=== PATIENT | female | born 1995 | race Caucasian/White ===

== ENCOUNTER 2019-01-23 00:07 | Day surgery (SDC) | payer BC ==
[~2019-01-23] VITALS: Ht 162.6 cm; Wt 48.5 kg
[~2019-01-23 00:07] MED LIST: ETON1VAG7 VG; MULT1CAP59 PO
[2019-01-23] MEDS ORDERED: LIDOCAINE MPF 1% 5 ML VIAL ONE (07:50)
[2019-01-23] MEDS ORDERED: PROPOFOL EMUL(*) 10MG/ML 20 ML 40 ML ONE (07:50)
[2019-01-23 08:44] VITALS: BP 111/82
[2019-01-23] MEDS ORDERED: LIDOCAINE/SOD BICARB 8.4% SYR ID ONE (08:55)
[2019-01-23] MEDS ORDERED: NORMOSOL R SOLN(*) 1000 ML BAG 1,000 ML IV PRN (08:55)
[2019-01-23 09:58] VITALS: BP 92/59
--- NOTE | 2019-01-23 10:04 | Short(Outpt) Discharge Summary ---
Discharge Summary Reason for Hosp/Final Diag: (1) Blood per rectum Hospital Course & Plan: pt presented for colonoscopy. she tolerated the procedure well. path pending. she will be discharged home when criteria met. Departure Discharge to: Home Discharge Instructions Home Meds Reported Medications Multivitamin (MULTIVITAMINS) 1 Each Capsule, 1 EACH PO QDAY, CAPSULE 01/16/19 Etonogestrel/Ethinyl Estradiol (NUVARING VAGINAL RING) 1 Each Vag.ring, 1 EACH VG, VAG.RING 01/16/19 Diet: Regular Activity: As Tolerated Special Instructions: we will call you in 10 days with biopsy results. RERE BENNETT January 23, 2019 10:04
[2019-01-23 10:30] VITALS: BP 95/65
[2019-01-23 10:44] VITALS: BP 116/78
[2019-01-23 10:45] VITALS: BP 110/76
--- NOTE | 2019-01-23 14:36 | NUR ---
0957- PT. RECEIVED FROM THE OR VIA STRETCHER WITH THE SIDERAILS UP. SBAR RECEIVED FROM KOURTNEY SCOTT AND DR. BROWN. SEE ADMISSION ASSESSMENT. 1020- PT. AWAKE. 1030- PT. GIVEN JUICE 1040- PT. IV TAKEN OUT AND PRESSURE DRESSING APPLIED. 1050- DISCHARGE INSTRUCTIONS GONE OVER WITH PT. AND FAMILY. 1056- PT. ACCOMPANIED OUT TO VEHICLE BY Jose MENEZES RN AND
== END 2019-01-23 10:56 | disposition home or self-care (01) ==
LOC: OR 00:07
PROVIDERS: ATTEND Surgery
DX: K92.1 Melena (principal)
CPT/HCPCS: 00811; 36415; 45380; 84703; 88305; J2001; J2704